=== PATIENT | male | born 1955 | race Caucasian/White ===

== ENCOUNTER 2018-10-24 05:41 | Outpatient (CLI) | payer BC ==
[~2018-10-24] VITALS: Ht 175.3 cm; Wt 93.4 kg
[~2018-10-24 05:41] MED LIST: ACHD5005 PO; CPR500T PO; CRAN1CAP5 PO; HYDR-229 PO; HYDR118S10 PO; LISI10TA PO; NAPR-243 PO; TMSL.4C PO; [UNRECOGNIZED DRUG - CODE] PO
== END 2018-10-24 14:12 ==
LOC: PREOP 05:41
PROVIDERS: ATTEND Surgery
DX: Z01.818 Encounter for other preprocedural examination (principal); R10.12 Left upper quadrant pain

== ENCOUNTER 2018-10-30 13:10 | Day surgery (SDC) | payer BC ==
[2018-10-30] VITALS (7 sets, daily range): BP systolic 178–198; BP diastolic 94–103
[~2018-10-30] VITALS: Ht 175.3 cm; Wt 93.4 kg
[2018-10-30] MEDS ORDERED: LACTATED RINGERS 1,000 ML IV ONE (13:23)
[2018-10-30] MEDS ORDERED: LACTATED RINGERS 1,000 ML IV STA (13:26)
--- NOTE | 2018-10-30 13:59 | Progress Note-Pre Operative ---
Pre-Operative Progress Note H&P Reviewed The H&P was reviewed, patient examined and no changes noted. Date Seen by Provider: Oct 30, 2018 Time Seen by Provider: 13:59 Date H&P Reviewed: Oct 30, 2018 Time H&P Reviewed: 13:59 Pre-Operative Diagnosis: luq abd pain OLMAN RIOS DO Oct 30, 2018 13:59
[2018-10-30] MEDS ORDERED: PROPOFOL INJECTION 50 ML IV ONE (14:31)
[2018-10-30] MEDS ORDERED: MIDAZOLAM 2 MG/2 ML (VERSED) VIAL ONE (14:31)
[2018-10-30] MEDS ORDERED: HURRICAINE EXT TUBE (BENZOCAINE) ONE (15:29)
--- NOTE | 2018-10-30 15:37 | Anesthesia-General Post-Op ---
MAC Patient Condition Mental Status/LOC: Same as Preop Cardiovascular: Satisfactory Nausea/Vomiting: Absent Respiratory: Satisfactory Pain: Controlled Complications: Absent Post Op Complications Complications None Follow Up Care/Instructions Patient Instructions None needed. Anesthesiology Discharge Order Discharge Order Patient was seen after the procedure and he was doing well, no complaints, stable vital signs, no apparent adverse anesthesia problems. QUITA CHOI DO Oct 30, 2018 15:37
--- NOTE | 2018-10-30 17:10 | Progress Note-Post Operative ---
Post-Operative Progess Note Surgeon (s)/Embedded Systems Designer (s) Surgeon OLMAN RIOS DO Embedded Systems Designer: na Pre-Operative Diagnosis luq abd pain Post-Operative Diagnosis small hiatal hernia, gastritis, colon polyps Procedure & Operative Findings Date of Procedure 10/30/18 Procedure Performed/Findings egd c biopsies, colon polyps Anesthesia Type per machine container washer Estimated Blood Loss Estimated blood loss (mL): none Specimens/Packing Specimens Removed antru, body of stomach, ge junction, descending colon plyp and sigmoid polyp OLMAN RIOS DO Oct 30, 2018 17:10
--- NOTE | 2018-10-30 19:46 | OPERATIVE REPORT ---
DATE OF SERVICE: 10/30/2018 PREOPERATIVE DIAGNOSIS: Left upper quadrant abdominal pain. POSTOPERATIVE DIAGNOSES: Small hiatal hernia, gastritis, colon polyps. PROCEDURE: EGD with biopsy, colonoscopy with hot biopsy polypectomy x2. SURGEON: Olman Szymanski DO ANESTHESIA: Per LAUNCH STEWARD. ESTIMATED BLOOD LOSS: None. COMPLICATIONS: None. INDICATIONS: The patient is a 63-year-old male with left upper quadrant abdominal pain. He was discussed risks and benefits of having EGD and colonoscopy performed. He understands risks and benefits and wished to proceed. Consent was signed in the chart. DESCRIPTION OF PROCEDURE: The patient was taken to the endoscopy suite, placed in left lateral recumbent position. Timeout was performed. Scope was inserted into the mouth, down the esophagus, stomach and into the duodenum without difficulty. There were no polyps, masses or ulcerations within the duodenum. Scope was slowly retracted back into the stomach where it was further insufflated. Gastritis appearance was present. Biopsies of the antrum and body were obtained. There is one small polyp present, benign appearance, no masses or ulcerations. Scope was retroflexed noting a small hiatal hernia, no other pathology. Scope was returned to its normal position, slowly withdrawn to the distal esophagus. Biopsy of the GE junction was obtained. Slight erythematous changes, no polyps, masses or ulcerations. Scope was slowly retracted back to completely remove noting no other pathology. Digital rectal exam was performed. There were no palpable polyps, masses or ulcerations, but did have significant hemorrhoidal disease. Scope was inserted in the rectum, advanced all the way to the cecum with minimal difficulty. Prep was adequate. Scope was then slowly retracted back. There were no polyps, masses or ulcerations in the cecum, ascending, transverse colon. Within the descending colon, a small polyp was present to which hot biopsy polypectomy was performed. Scope was continued to be slowly retracted back through the sigmoid colon, which had another small polyp to which hot biopsy polypectomy was performed. No other masses or ulcerations were present or diverticula were present. Scope was continuously retracted back into the rectum, where it was retroflexed noting no other pathology. Scope was returned to its normal position, slowly withdrawn until completely removed. The patient tolerated procedure well without any complications. He was taken to recovery room in stable condition. RECOMMENDATIONS: The patient to consider starting omeprazole 20 mg daily. He will need repeat colonoscopy in 3 to 5 years. If any issues before that will be seen at that time. The patient will follow up in the office in 2 weeks. Job ID: [id number] DocumentID: [id number] Dictated Date: 10/30/2018 17:11:21 Sheet Cutting Operator Date: 10/30/2018 19:45:57 Dictated By: OLMAN SZYMANSKI DO
== END 2018-10-30 16:35 | disposition home or self-care (01) ==
LOC: ENDO 13:10
PROVIDERS: ATTEND Surgery
DX: K63.5 Polyp of colon (principal); K29.50 Unspecified chronic gastritis without bleeding; K31.7 Polyp of stomach and duodenum; K31.89 Other diseases of stomach and duodenum; K44.9 Diaphragmatic hernia without obstruction or gangrene; K64.8 Other hemorrhoids; I21.9 Acute myocardial infarction, unspecified; K76.0 Fatty (change of) liver, not elsewhere classified; N20.0 Calculus of kidney; Z90.89 Acquired absence of other organs; Z79.82 Long term (current) use of aspirin; Z79.899 Other long term (current) drug therapy; Z87.891 Personal history of nicotine dependence; Z83.49 Family history of other endocrine, nutritional and metabolic diseases; Z82.49 Family history of ischemic heart disease and other diseases of the circulatory system; Z83.3 Family history of diabetes mellitus
CPT/HCPCS: 88305

== ENCOUNTER → 2021-05-11 | Outpatient (CLI) | payer OTHER | LOC: CARD 13:00 | PROVIDERS: ATTEND Pediatrics | DX: I51.7 Cardiomegaly (principal); R79.89 Other specified abnormal findings of blood chemistry | CPT/HCPCS: 93306 ==

== ENCOUNTER 2021-05-21 18:20 | Inpatient (IN) | payer OTHER ==
[~2021-05-21] VITALS: Ht 175.2 cm; Wt 78.4 kg
[2021-05-21 18:40] LABS: BASOPHILS # (AUTO) 0.1 10^3/uL (0.0-0.1); BASOPHILS % (AUTO) 1 % (0-10); EOSINOPHILS # (AUTO) 0.2 10^3/uL (0.0-0.3); EOSINOPHILS % (AUTO) 3 % (0-10); HEMATOCRIT 48 % (40-54); HEMOGLOBIN 15.9 g/dL (13.3-17.7); LYMPHOCYTES # (AUTO) 1.9 10^3/uL (1.0-4.0); LYMPHOCYTES % (AUTO) 23 % (12-44); MEAN CORPUSCULAR HEMOGLOBIN 28 pg (25-34); MEAN CORPUSCULAR HGB CONC 34 g/dL (32-36); MEAN CORPUSCULAR VOLUME 84 fL (80-99); MEAN PLATELET VOLUME 10.6 fL (9.0-12.2); MONOCYTES % (AUTO) 12 % (0-12); NEUTROPHILS # (AUTO) 5.1 10^3/uL (1.8-7.8); NEUTROPHILS % (AUTO) 61 % (42-75); PLATELET COUNT 264 10^3/uL (130-400); WHITE BLOOD COUNT 8.3 10^3/uL (4.3-11.0)
[2021-05-21] MEDS ORDERED: fentaNYL INJ 100 MCG/2 ML AMP IVP ONE (18:45)
[2021-05-21] MEDS ORDERED: cloNIDine 0.1 MG (CATAPRES) TAB PO ONE (18:45)
[2021-05-21 18:50] LABS: ALBUMIN 4.2 GM/DL (3.2-4.5); POTASSIUM 3.3 MMOL/L (3.6-5.0)
--- NOTE | 2021-05-21 18:50 | Diagnostic Imaging Report ---
EXAMINATION: Chest 1 view. HISTORY: Chest pain. COMPARISON: None available. FINDINGS: The lungs are clear without edema or pneumonia. No pleural effusion or pneumothorax. Heart size is normal. IMPRESSION: Clear lungs. Dictated by: Dictated on workstation # [id number]
[2021-05-21 18:51] LABS: CALCIUM 9.4 MG/DL (8.5-10.1)
[2021-05-21 18:52] LABS: TOTAL PROTEIN 7.3 GM/DL (6.4-8.2)
[2021-05-21 18:53] LABS: PROTHROMBIN TIME PATIENT 13.5 SEC (12.2-14.7)
[2021-05-21 18:54] LABS: BILIRUBIN,TOTAL 0.3 MG/DL (0.1-1.0)
--- NOTE | 2021-05-21 18:55 | ED Cardiac General ---
History of Present Illness General Chief Complaint: Cardiac/General Problems Stated Complaint: CHEST PAIN Nursing Triage Note: PT TO ROOM BY WHEELCHAIR WITH PT . PT STATES HE HAS CHEST PAIN AND ABDOMINAL PAIN WHERE HERNIA IS. PT STATES CP HAS BEEN GOING ON "ABOUT A YEAR." PT SENT FROM [facility] Source: patient, family Exam Limitations: no limitations History of Present Illness Date Seen by Provider: May 21, 2021 Time Seen by Provider: 18:50 Initial Comments to ER FROM [facility] with reports of chest pain. This has been intermittent for better part of the year. He also reports some epigastric and bilateral upper abdominal pain which he believes is a hernia . patient states that he has noticed a significant decline in his activity tolerance secondary to fatigue and dyspnea He states that even minimal activities exhaust him. He has intermittent chest pain that seems to come and go without reason or pattern. Sometimes it happens at rest but it also happens with activity. He has a strong family history of cardiovascular disease with both brothers and a father suffering UT at the age of 65 and 64. He has chronic nausea that has resulted in weight loss unintentionally over the past 6 months. He was found to have an elevated proBNP at some point during the past month or 2 as part of screening labs as he was trying to get life insurance. This led to his primary care provider Dr. Antolin Mayorga ordering an echocardiogram which was done on 05/11/2021. That showed normal cavity size with mild concentric hypertrophy and ejection fraction of 45 to 50% with hypokinesis of the apical myocardium. He was given 324 mg of aspirin at [facility] prior to arrival here. Timing/Duration: changing over time, intermittent Severity: moderate Location: central Activities at Onset: activity, rest Prior CP/Workup: echocardiography NTG SL ACID BLEACHER: No ASA po ACID BLEACHER: Yes Associated Systoms: Nausea/Vomiting Allergies and Home Medications Allergies Coded Allergies: No Known Drug Allergies (Unverified , 03/08/12) Patient Home Medication List Home Medication List Reviewed: Yes No Active Prescriptions or Reported Meds Review of Systems Review of Systems Constitutional: see HPI EENTM: No Symptoms Reported Respiratory: No Symptoms Reported Cardiovascular: No Symptoms Reported Gastrointestinal: See HPI, Abdominal Pain, Constipated, Nausea Genitourinary: No Symptoms Reported Musculoskeletal: no symptoms reported Skin: no symptoms reported Psychiatric/Neurological: No Symptoms Reported Endocrine: No Symptoms Reported Hematologic/Lymphatic: No Symptoms Reported Past Yzgyggn-Btnclv-Xjtkif Hx Past Medical History Surgeries: Yes (HERNIA/HYDROCELE) Tonsillectomy Respiratory: No Cardiac: No Neurological: No Genitourinary: No Kidney Stones Gastrointestinal: Yes Musculoskeletal: No Endocrine: No HEENT: No Cancer: No Psychosocial: No Integumentary: No Blood Disorders: No Family Medical History No Pertinent Family Hx Physical Exam Vital Signs Vital Signs - First Documented 05/21/21 18:28 Temp 36.3 Pulse 79 Resp 16 B/P (MAP) 223/114 (150) Pulse Ox 97 Capillary Refill : Height, Weight, BMI Height: 5'9.00" Weight: 206lbs. 0.0oz. 93.881670wy; 25.00 BMI Method:Stated General Appearance: No Apparent Distress, WD/WN HEENT: PERRL/EOMI, TMs Normal Neck: Full Range of Motion, Normal Inspection Respiratory: No Accessory Muscle Use, No Respiratory Distress Cardiovascular: Regular Rate, Rhythm, Normal Peripheral Pulses Gastrointestinal: Normal Bowel Sounds, Soft Extremity: Normal Capillary Refill, Normal Inspection Neurologic/Psychiatric: Alert, Oriented x3 Skin: Normal Color, Warm/Dry Progress/Results/Core Measures Results/Orders Lab Results Laboratory Tests Test 05/21/21 18:34 Range/Units White Blood Count 8.3 4.3-11.0 10^3/uL Red Blood Count 5.66 H 4.30-5.52 10^6/uL Hemoglobin 15.9 13.3-17.7 g/dL Hematocrit 48 40-54 % Mean Corpuscular Volume 84 80-99 fL Mean Corpuscular Hemoglobin 28 25-34 pg Mean Corpuscular Hemoglobin Concent 34 32-36 g/dL Red Cell Distribution Width 14.3 10.0-14.5 % Platelet Count 264 130-400 10^3/uL Mean Platelet Volume 10.6 9.0-12.2 fL Immature Granulocyte % (Auto) 0 % Neutrophils (%) (Auto) 61 42-75 % Lymphocytes (%) (Auto) 23 12-44 % Monocytes (%) (Auto) 12 0-12 % Eosinophils (%) (Auto) 3 0-10 % Basophils (%) (Auto) 1 0-10 % Neutrophils # (Auto) 5.1 1.8-7.8 10^3/uL Lymphocytes # (Auto) 1.9 1.0-4.0 10^3/uL Monocytes # (Auto) 1.0 0.0-1.0 10^3/uL Eosinophils # (Auto) 0.2 0.0-0.3 10^3/uL Basophils # (Auto) 0.1 0.0-0.1 10^3/uL Immature Granulocyte # (Auto) 0.0 0.0-0.1 10^3/uL Prothrombin Time 13.5 12.2-14.7 SEC INR Comment 1.0 0.8-1.4 Activated Partial Thromboplast Time 32 24-35 SEC Sodium Level 141 135-145 MMOL/L Potassium Level 3.3 L 3.6-5.0 MMOL/L Chloride Level 105 98-107 MMOL/L Carbon Dioxide Level 20 L 21-32 MMOL/L Anion Gap 16 H 5-14 MMOL/L Blood Urea Nitrogen 15 7-18 MG/DL Creatinine 0.77 0.60-1.30 MG/DL Estimat Glomerular Filtration Rate 100 BUN/Creatinine Ratio 19 Glucose Level 136 H 70-105 MG/DL Calcium Level 9.4 8.5-10.1 MG/DL Corrected Calcium 9.2 8.5-10.1 MG/DL Magnesium Level 2.1 1.6-2.4 MG/DL Total Bilirubin 0.3 0.1-1.0 MG/DL Aspartate Amino Transf (AST/SGOT) 30 5-34 U/L Alanine Aminotransferase (ALT/SGPT) 49 0-55 U/L Alkaline Phosphatase 87 40-136 U/L Myoglobin 63.7 10.0-92.0 NG/ML Troponin I 0.327 *H <0.028 NG/ML B-Type Natriuretic Peptide 168.9 H <100.0 PG/ML Total Protein 7.3 6.4-8.2 GM/DL Albumin 4.2 3.2-4.5 GM/DL Lipase 34 8-78 U/L My Orders Orders - AMNA NEVAREZ DEPUTY GENERAL COUNSEL Cbc With Automated Diff (05/21/21 18:24) Magnesium (05/21/21 18:24) Chest 1 View, Ap/Pa Only (05/21/21 18:24) Ekg Tracing (05/21/21 18:24) Comprehensive Metabolic Panel (05/21/21 18:24) Myoglobin Serum (05/21/21 18:24) Protime With Inr (05/21/21 18:24) Partial Thromboplastin Time (05/21/21 18:24) O2 (05/21/21 18:24) Monitor-Rhythm Ecg Trace Only (05/21/21 18:24) Lipid Panel (05/22/21 06:00) Ed Iv/Invasive Line Start (05/21/21 18:24) Bnp [place] (05/21/21 18:24) Troponin I [place] (05/21/21 18:24) Ct Kristan Chest/Noang Abd-Pelv W (05/21/21 18:44) Lipase (05/21/21 18:44) Fentanyl Inj (Sublimaze Injection) (05/21/21 18:45) Clonidine Tablet (Catapres Tablet) (05/21/21 18:45) Iohexol Injection (Omnipaque 350 Mg/Ml 1 (05/21/21 19:00) Received Contrast (Hold Metformin- Contr (05/21/21 19:00) Ns (Ivpb) (Sodium Chloride 0.9% Ivpb Bag (05/21/21 19:00) Nitroglycerin 0.4 Mg Btl 25's (Nitrostat (05/21/21 19:45) Medications Given in ED Current Medications Medications Dose Ordered Sig/Zoila Route Start Time Stop Time Status Last Admin Dose Admin Clonidine HCl 0.1 mg ONCE ONCE PO 05/21/21 18:45 05/21/21 18:47 DC 05/21/21 19:02 0.1 MG Fentanyl Citrate 50 mcg ONCE ONCE IVP 05/21/21 18:45 05/21/21 18:46 DC 05/21/21 19:02 50 MCG Iohexol 100 ml ONCE ONCE IV 05/21/21 19:00 05/21/21 19:01 DC 05/21/21 19:23 75 ML Nitroglycerin 1 TAB Q 5 MIN X 3 NEEDED PRN SL 05/21/21 19:45 05/21/21 19:52 0.4 MG Sodium Chloride 100 ml ONCE ONCE IV 05/21/21 19:00 05/21/21 19:01 DC 05/21/21 19:23 80 ML Vital Signs/I&O 05/21/21 18:28 Temp 36.3 Pulse 79 Resp 16 B/P (MAP) 223/114 (150) Pulse Ox 97 Blood Pressure Mean: 150 Departure Communication (Admissions) 1999-Spoke with Dr. Schultz about the CT findings of kiah-infarct apical aneurysm, patients symptoms and history. We will start him on aspirin, Lovenox, beta-norberto and atorvastatin 40 [address] daily[address] with Dr. Martniez, will admit here. He is primarily concerned about a "hernia" of the lateral abdominal wall bilaterally Impression Primary Impression: NSTEMI (non-ST elevated myocardial infarction) Disposition: ADMITTED INPATIENT Condition: Stable Admissions Decision to Admit Reason: Admit from ER (General) Decision to Admit/Date: May 21, 2021 Time/Decision to Admit Time: 20:01 Departure-Patient Inst. Referrals: DONELL OCHOA DO (PCP/Family) Primary Care Physician Scripts No Active Prescriptions or Reported Meds AMNA NEVAREZ APRN May 21, 2021 18:55
[2021-05-21 18:56] LABS: CREATININE SERUM 0.77 MG/DL (0.60-1.30)
[2021-05-21 18:58] LABS: MAGNESIUM 2.1 MG/DL (1.6-2.4)
[2021-05-21] MEDS ORDERED: NS 100 ML (IVPB) BAG IV ONE (19:00)
[2021-05-21] MEDS ORDERED: HOLD METFORMIN - RECEIVED CONTRAST 20 ML VIAL IV SCH (19:00)
[2021-05-21] MEDS ORDERED: IOHEXOL 350 MG/ML 100 ML (OMNIPAQUE 350) VIAL IV ONE (19:00)
--- NOTE | 2021-05-21 19:40 | Diagnostic Imaging Report ---
EXAMINATION: CT angiography chest with and without, CT abdomen and pelvis with and without. TECHNIQUE: Noncontrast enhanced helical images were obtained through the chest, abdomen and pelvis. Contrast enhanced thin section helical images were obtained through the chest, abdomen and pelvis with intravenous contrast timed for the optimal opacification of the arterial structures per departmental CTA protocol. Post-processing, retro reconstructions and interpretation of angiographic images of the vessels was performed. 3D MIP reconstructions were performed and reviewed. All CT scans use one or more of the following dose optimizing techniques: automated exposure control, MA and/or KvP adjustment based on patient size and exam type or iterative reconstruction. HISTORY: Chest pain, abdominal pain. COMPARISON: None available. FINDINGS: There is no pulmonary embolism. There is no edema or pneumonia. No pleural effusion. No pneumothorax. No suspicious nodules. There is no axillary or supraclavicular lymphadenopathy. There is no mediastinal lymphadenopathy. There is subendocardial hypoenhancement in the left anterior descending artery territory with thinning of the apex consistent with a kiah-infarct in the aneurysm. There are moderate coronary artery calcifications. No pericardial effusion. Aorta is normal in caliber. The liver is normal without focal lesion. There is no biliary ductal dilation. Gallbladder is normal. Pancreas is normal. Spleen is normal. Adrenal glands are normal. The kidneys are normal. There is no hydronephrosis. Urinary bladder is normal. Bowel is normal in caliber without obstruction or inflammation. The appendix is normal. No free fluid or air. No abdominal or pelvic lymphadenopathy. Aorta is normal in caliber without aneurysm. There are no suspicious osseus lesions. IMPRESSION: 1. No pulmonary embolism. 2. 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 3. No acute abnormality in the abdomen or pelvis. Dictated by: Dictated on workstation # [id number]
[2021-05-21] MEDS ORDERED: NITROGLYCERIN 0.4 MG SL TABS BTL 25'S SL PRN (19:45)
[2021-05-21] MEDS ORDERED: ENOXAPARIN 80 MG/0.8 ML (LOVENOX) SYR SC ONE (20:00)
[2021-05-21] MEDS ORDERED: meTOproloL SUCCINATE 50 MG (TOPROL XL) TAB PO SCH (20:00)
[2021-05-21] MEDS ORDERED: BISACODYL 10 MG SUPP (DULCOLAX) PR PRN (21:00)
[2021-05-21] MEDS ORDERED: ANTACID SUSP 30 ML UDC (MYLANTA) PO PRN (21:00)
[2021-05-21] MEDS ORDERED: ALPRAZolam 0.25 MG (XANAX) TAB PO PRN (21:00)
[2021-05-21] MEDS ORDERED: ONDANSETRON 4 MG (ZOFRAN) ORAL DISSOLVE TAB PO PRN (21:00)
[2021-05-21] MEDS ORDERED: morphine INJ 4 MG/ML 1 ML (VIAL/SYRINGE) IV PRN (21:00)
[2021-05-21] MEDS ORDERED: MILK OF MAGNESIA 400 MG/5 ML 30 ML UDC PO PRN (21:00)
[2021-05-21] MEDS ORDERED: CALCIUM CARBONATE 500 MG (TUMS) TAB.CHEW PO PRN (21:00)
[2021-05-21] MEDS ORDERED: diphenhydrAMINE 25 MG TAB (BENADRYL) PO PRN (21:00)
[2021-05-21] MEDS ORDERED: MELATONIN 3 MG TABLET PO PRN (21:00)
[2021-05-21] MEDS ORDERED: diphenhydrAMINE 50 MG/ML INJ (BENADRYL) IVP PRN (21:00)
[2021-05-21] MEDS ORDERED: ACETAMINOPHEN 325 MG TABLET PO PRN (21:00)
[2021-05-21] MEDS ORDERED: LACTULOSE SYRUP 10GM/15ML (ENULOSE) 30ML UDC PO PRN (21:00)
[2021-05-21] MEDS ORDERED: ONDANSETRON 4 MG/2 ML (SDV) Z0FRAN IV PRN (21:00)
[2021-05-21] MEDS ORDERED: polyethylene glycoL POWDER 17 GM (MIRALAX) PACK PO PRN (21:00)
[2021-05-21 21:37] LABS: BILIRUBIN,URINE NEGATIVE (NEGATIVE); CLARITY,URINE CLEAR; COLOR,URINE YELLOW; GLUCOSE, URINE (UA) NEGATIVE (NEGATIVE); KETONES,URINE NEGATIVE (NEGATIVE); LEUKOCYTE ESTERASE ,URINE NEGATIVE (NEGATIVE); NITRITE,URINE POSITIVE (NEGATIVE); PH,URINE 6.5 (5-9); PROTEIN,URINE NEGATIVE (NEGATIVE)
[2021-05-21] MEDS: DOCUSATE SODIUM 100 MG (COLACE) CAP PO SCH (21:51)
[2021-05-21] MEDS: SENNOSIDES 8.6 MG (SENOKOT) TAB PO SCH (21:51)
[2021-05-21] MEDS: ENOXAPARIN 80 MG/0.8 ML (LOVENOX) SYR SC SCH (21:51)
[2021-05-21] MEDS: meTOprolol TARTRATE 25 MG (LOPRESSOR) TABLET PO SCH (21:51)
[2021-05-21 21:52] LABS: BACTERIA,URINE FEW /HPF; SQUAMOUS EPITHELIAL CELL,UR RARE /HPF; WBC,URINE RARE /HPF
[2021-05-21] MEDS ORDERED: POTASSIUM CL 10MEQ/50ML IVPB 50 ML IV ONE (22:30)
[2021-05-21] MEDS ORDERED: NS (IVPB) 250 ML ONE (22:43)
[2021-05-21] MEDS: PANTOPRAZOLE 40 MG (PROTONIX) VIAL IV SCH (22:55)
[2021-05-22 06:14] LABS: BASOPHILS # (AUTO) 0.1 10^3/uL (0.0-0.1); BASOPHILS % (AUTO) 1 % (0-10); EOSINOPHILS # (AUTO) 0.3 10^3/uL (0.0-0.3); EOSINOPHILS % (AUTO) 3 % (0-10); HEMATOCRIT 44 % (40-54); HEMOGLOBIN 14.4 g/dL (13.3-17.7); LYMPHOCYTES # (AUTO) 2.4 10^3/uL (1.0-4.0); LYMPHOCYTES % (AUTO) 30 % (12-44); MEAN CORPUSCULAR HEMOGLOBIN 28 pg (25-34); MEAN CORPUSCULAR HGB CONC 33 g/dL (32-36); MEAN CORPUSCULAR VOLUME 85 fL (80-99); MEAN PLATELET VOLUME 10.8 fL (9.0-12.2); MONOCYTES # (AUTO) 0.8 10^3/uL (0.0-1.0); MONOCYTES % (AUTO) 10 % (0-12); NEUTROPHILS # (AUTO) 4.6 10^3/uL (1.8-7.8); NEUTROPHILS % (AUTO) 57 % (42-75); PLATELET COUNT 233 10^3/uL (130-400); WHITE BLOOD COUNT 8.2 10^3/uL (4.3-11.0)
--- NOTE | 2021-05-22 06:21 | History & Physical-Hospitalist ---
History of Present Illness HPI/Chief Complaint Chief complaint: Chest pain History present illness: This is a 65-year-old white male who presented to the ER with chest pain. Slightly elevated troponin noted. Cardiology consulted. Aspirin and Lovenox and beta-norberto and statin therapy initiated per protocol. Patient reported taking great pride in the fact he was not on any prescription medication at 65 years old and takes his herbals. Cardiac cath will be p erformed by Dr. Schultz. Source: patient Exam Limitations: no limitations Date Seen 05/22/21 Time Seen by a Provider: 11:00 Attending Physician Jacquelyn Martinez DO PCP Jean Saavedra DO Referring Physician Date of Admission May 21, 2021 at 20:03 Home Medications & Allergies Home Medications Reviewed patient Home Medication Reconciliation performed by pharmacy medication reconciliations dairy lab technician and/or nursing. Patients Allergies have been reviewed. Allergies Allergies Coded Allergies No Known Drug Allergies (Unverified03/08/12) Past Zrgunue-Cmytna-Xhyedq Hx Patient Social History Marrital Status: single Employed/Student: retired Tobacco Use?: No Smoking Status: Never a Smoker Substance use?: No Alcohol Use?: No Pt feels they are or have been: No Current Status Communicates: Verbally Primary Language: Irish Preferred Spoken Language: Irish Past Medical History Surgeries: Tonsillectomy Kidney Stones Blood Disorders: No Family Medical History No Pertinent Family Hx Review of Systems Constitutional: see HPI, malaise, weakness EENTM: no symptoms reported Respiratory: no symptoms reported Cardiovascular: chest pain Gastrointestinal: no symptoms reported Genitourinary: no symptoms reported Musculoskeletal: no symptoms reported Skin: no symptoms reported Psychiatric/Neurological: No Symptoms Reported All Other Systems Reviewed Negative Unless Noted: Yes Physical Exam Physical Exam Vital Signs Vital Signs - First Documented 05/21/21 05/21/21 05/22/21 18:28 22:25 16:42 Temp 36.3 Pulse 79 Resp 16 B/P (MAP) 223/114 (150) Pulse Ox 97 O2 Flow Rate 2.00 FiO2 21 Capillary Refill : Less Than 3 Seconds Height, Weight, BMI Height: 5'9.00" Weight: 206lbs. 0.0oz. 93.584037dr; 25.00 BMI Method:Stated General Appearance: No Apparent Distress Eyes: Right Eye Normal Inspection, Right Eye PERRL HEENT: PERRL/EOMI, Normal ENT Inspection, Pharynx Normal, Moist Mucous Membranes Neck: Full Range of Motion, Normal Inspection, Non Tender Respiratory: Chest Non Tender, Lungs Clear, Normal Breath Sounds, No Accessory Muscle Use, No Respiratory Distress Cardiovascular: Regular Rate, Rhythm, No Edema, No Gallop, No JVD, No Murmur, Normal Peripheral Pulses Gastrointestinal: Normal Bowel Sounds, No Organomegaly, No Pulsatile Mass, Non Tender, Soft Back: Normal Inspection, No CVA Tenderness, No Vertebral Tenderness Extremity: Normal Capillary Refill, Normal Inspection, Normal Range of Motion, Non Tender, No Calf Tenderness, No Pedal Edema Neurologic/Psychiatric: Alert, Oriented x3, No Motor/Sensory Deficits, Normal Mood/Affect Skin: Normal Color, Warm/Dry Lymphatic: No Adenopathy Results Results/Procedures Labs Laboratory Tests 05/21/21 18:34 05/22/21 06:03 Patient resulted labs reviewed. Assessment/Plan Admission Diagnosis Assessment: Chest pain Non-ST elevation TN Plan: Cardiac cath Admission Status: Inpatient Order (span 2 midnights) Reason for Inpatient Admission: Non-STEMI Diagnosis/Problems Diagnosis/Problems (1) Non-ST elevation myocardial infarction (NSTEMI), initial care episode Clinical Quality Measures AMI/AHF: ASA po Prior to arrival: Yes JACQUELYN MARTINEZ DO May 22, 2021 06:21
[2021-05-22 06:35] LABS: POTASSIUM 3.4 MMOL/L (3.6-5.0)
[2021-05-22 06:36] LABS: ALBUMIN 3.6 GM/DL (3.2-4.5)
[2021-05-22 06:37] LABS: CALCIUM 8.9 MG/DL (8.5-10.1)
[2021-05-22 06:38] LABS: TOTAL PROTEIN 6.2 GM/DL (6.4-8.2)
[2021-05-22 06:40] LABS: BILIRUBIN,TOTAL 0.3 MG/DL (0.1-1.0)
[2021-05-22 06:42] LABS: CREATININE SERUM 0.72 MG/DL (0.60-1.30)
[2021-05-22] MEDS ORDERED: ASPIRIN E.C. 81 MG (ECOTRIN) TAB PO SCH (09:00)
[2021-05-22] MEDS: ENOXAPARIN 80 MG/0.8 ML (LOVENOX) SYR SC SCH (09:24)
[2021-05-22] MEDS: PANTOPRAZOLE 40 MG (PROTONIX) VIAL IV SCH (09:24)
[2021-05-22] MEDS: SENNOSIDES 8.6 MG (SENOKOT) TAB PO SCH (09:24)
[2021-05-22] MEDS: DOCUSATE SODIUM 100 MG (COLACE) CAP PO SCH (09:24)
[2021-05-22] MEDS: meTOprolol TARTRATE 25 MG (LOPRESSOR) TABLET PO SCH ×2 (09:32→10:09)
--- NOTE | 2021-05-22 10:26 | Consultation-Cardiology ---
HPI-Cardiology Cardiology Consultation: Date of Consultation 05/22/21 Date of Admission 05/21/2021 Attending Physician Jacquelyn Martinez DO Admitting Physician Jean Saavedra DO Consulting Physician RITA WU JR, MD HPI: Time Seen by a Provider: 10:21 Chief Complaint: Reason for consultation: Non-ST elevation myocardial infarction and cardiomyopathy. I had the pleasure of seeing Jeff in the intensive care unit at [facility] in [place], [place] this morning. He has no previously known history of coronary artery disease. For the past year he has been having issues with abdominal hernias. He has a ventral hernia as well as a hernia on the right side of his abdomen. These have been causing problems with abdominal pain and constipation. He had seen his primary provider and was taking some [id number]-[id number] medication for constipation. However, he has also had progressive shortness of breath and chest discomfort over the past year. He also spoke to his primary provider about these symptoms 2 weeks ago. An echocardiogram was ordered which showed mild left ventricular systolic dysfunction with an apical wall motion abnormality. He has not yet received the report on this. Then yesterday he went to his primary provider again due to increasing chest discomfort and dyspnea. He describes the chest discomfort as a pressure in his chest. This was 7/10 at its worst. His primary provider then sent him to the emergency room last evening for further evaluation. He was found to have a marginally elevated troponin level and was admitted to the hospital for further evaluation. Overnight, he has continued to have intermittent chest discomfort although somewhat improved. His troponin has gradually gone up overnight although minimally elevated. He denies paroxysmal nocturnal dyspnea, orthopnea, palpitations, lightheadedness, syncope, or lower extremity edema. Because of the non-ST elevation myocardial infarction, a cardiology consultation was requested. Certain portions of this document may have been dictated utilizing voice recognition technology. Inherent to this technology, typographical and grammatical errors may exist. As much as I am diligent to identify and correct these mistakes, some errors may remain in the document. Review of Systems-Cardiology Review of Systems Other comments Review of 10 organ systems is as per the history of present illness, otherwise negative. [id number]-[id number]-Urodza Hx Patient Social History Marrital Status: Smoking Status: Never a Smoker Have you traveled recently?: No Alcohol Use?: No Pt feels they are or have been: No Past Medical History PMH As described under Assessment. Family Medical History Family Medical History: His brothers had heart problems. Allergies and Home Medications Allergies Coded Allergies: No Known Drug Allergies (Unverified , 03/08/12) Patient Home Medication List Home Medication List Reviewed: Yes No Active Prescriptions or Reported Meds Exam Vital Signs Vital Signs Date Time Temp Pulse Resp B/P (MAP) Pulse Ox O2 Delivery O2 Flow Rate FiO2 05/22/21 10:00 61 11 158/89 97 Room Air 05/22/21 07:43 36.3 05/21/21 22:25 21 Physical Exam General: Alert. No acute distress. Well nourished and appears stated age. Eye: Extraocular movements are intact. Conjunctivae are clear. There are no xanthelasma. HENT: Normocephalic. Atraumatic. Carotid pulsations 2/2 without bruits. Neck: Jugular venous pressure does not appear elevated. No thyromegaly appreciated. Respiratory: Lungs are clear to auscultation. Respirations are non-labored. Breath sounds are equal. Symmetrical chest wall expansion. Cardiovascular: Normal rate. Regular rhythm. No murmur. No gallop. Point of maximal impulse is not appear displaced. Good pulses equal in all extremities. No edema. Gastrointestinal: Soft. Normal bowel sounds. Skin: Skin turgor is normal. There is no pallor. Musculoskeletal: No kyphosis or scoliosis appreciated. Neurologic: Alert and oriented to person, place, time. Cranial nerves 3-12 appear grossly intact. The patient has good motor tone strength in the upper and lower extremities bilaterally. Psychiatric: Cooperative. Appropriate mood & affect. Labs Laboratory Tests Test 05/21/21 18:34 05/21/21 21:30 05/22/21 01:08 05/22/21 06:03 Range/Units White Blood Count 8.3 8.2 4.3-11.0 10^3/uL Red Blood Count 5.66 H 5.12 4.30-5.52 10^6/uL Hemoglobin 15.9 14.4 13.3-17.7 g/dL Hematocrit 48 44 40-54 % Mean Corpuscular Volume 84 85 80-99 fL Mean Corpuscular Hemoglobin 28 28 25-34 pg Mean Corpuscular Hemoglobin Concent 34 33 32-36 g/dL Red Cell Distribution Width 14.3 14.4 10.0-14.5 % Platelet Count 264 233 130-400 10^3/uL Mean Platelet Volume 10.6 10.8 9.0-12.2 fL Immature Granulocyte % (Auto) 0 0 % Neutrophils (%) (Auto) 61 57 42-75 % Lymphocytes (%) (Auto) 23 30 12-44 % Monocytes (%) (Auto) 12 10 0-12 % Eosinophils (%) (Auto) 3 3 0-10 % Basophils (%) (Auto) 1 1 0-10 % Neutrophils # (Auto) 5.1 4.6 1.8-7.8 10^3/uL Lymphocytes # (Auto) 1.9 2.4 1.0-4.0 10^3/uL Monocytes # (Auto) 1.0 0.8 0.0-1.0 10^3/uL Eosinophils # (Auto) 0.2 0.3 0.0-0.3 10^3/uL Basophils # (Auto) 0.1 0.1 0.0-0.1 10^3/uL Immature Granulocyte # (Auto) 0.0 0.0 0.0-0.1 10^3/uL Prothrombin Time 13.5 12.2-14.7 SEC INR Comment 1.0 0.8-1.4 Activated Partial Thromboplast Time 32 24-35 SEC Sodium Level 141 139 135-145 MMOL/L Potassium Level 3.3 L 3.4 L 3.6-5.0 MMOL/L Chloride Level 105 107 98-107 MMOL/L Carbon Dioxide Level 20 L 21 21-32 MMOL/L Anion Gap 16 H 11 5-14 MMOL/L Blood Urea Nitrogen 15 12 7-18 MG/DL Creatinine 0.77 0.72 0.60-1.30 MG/DL Estimat Glomerular Filtration Rate 100 102 BUN/Creatinine Ratio 19 17 Glucose Level 136 H 114 H 70-105 MG/DL Calcium Level 9.4 8.9 8.5-10.1 MG/DL Corrected Calcium 9.2 9.2 8.5-10.1 MG/DL Magnesium Level 2.1 1.6-2.4 MG/DL Total Bilirubin 0.3 0.3 0.1-1.0 MG/DL Aspartate Amino Transf (AST/SGOT) 30 29 5-34 U/L Alanine Aminotransferase (ALT/SGPT) 49 45 0-55 U/L Alkaline Phosphatase 87 70 40-136 U/L Myoglobin 63.7 10.0-92.0 NG/ML Troponin I 0.327 *H 0.337 *H 0.401 *H <0.028 NG/ML B-Type Natriuretic Peptide 168.9 H <100.0 PG/ML Total Protein 7.3 6.2 L 6.4-8.2 GM/DL Albumin 4.2 3.6 3.2-4.5 GM/DL Lipase 34 8-78 U/L Urine Color YELLOW Urine Clarity CLEAR Urine pH 6.5 5-9 Urine Specific [place] 1.010 L 1.016-1.022 Urine Protein NEGATIVE NEGATIVE Urine Glucose (UA) NEGATIVE NEGATIVE Urine Ketones NEGATIVE NEGATIVE Urine Nitrite POSITIVE H NEGATIVE Urine Bilirubin NEGATIVE NEGATIVE Urine Urobilinogen 0.2 < = 1.0 MG/DL Urine Leukocyte Esterase NEGATIVE NEGATIVE Urine RBC (Auto) NEGATIVE NEGATIVE Urine RBC NONE /HPF Urine WBC RARE /HPF Urine Squamous Epithelial Cells RARE /HPF Urine Crystals NONE /LPF Urine Bacteria FEW H /HPF Urine Casts NONE /LPF Urine Mucus NEGATIVE /LPF Urine Culture Indicated YES Triglycerides Level 160 H <150 MG/DL Cholesterol Level 127 < 200 MG/DL LDL Cholesterol Direct 94 1-129 MG/DL VLDL Cholesterol 32 5-40 MG/DL HDL Cholesterol 22 L 40-60 MG/DL ECG Impression ECG Comment Electrocardiogram from the emergency room shows sinus rhythm and possible old anterior myocardial infarction with minimal anterior ST elevation. Diagnosis/Problems Diagnosis/Problems (1) Non-ST elevation myocardial infarction (NSTEMI), initial care episode Assessment & Plan: He appears to be suffering a non-ST elevation myocardial infarction. Based upon his recent echocardiogram, it appears as though he may have had an old anterior myocardial infarction. His electrocardiogram also shows anterior Q waves. However, his troponin is on the rise and he is still having chest discomfort. He has been placed on aspirin, enoxaparin, beta- norberto and statin medication. I will start him on nitroglycerin paste. I recommend further evaluation with a cardiac catheterization. Benefits and risks of the procedure have been explained to the patient and his and both are in agreement to proceed. (2) Cardiomyopathy Assessment & Plan: His recent echocardiogram ordered by his primary provider prior to this admission showed mild left ventricular systolic dysfunction with an ejection fraction of 45-50%. He has been started on metoprolol succinate. I will add low-dose of lisinopril. There is no evidence of heart failure on his chest x-ray or chest CT. (3) Primary hypertension Assessment & Plan: He does not have a history of hypertension but his blood pressures have been elevated here in the hospital. He has been started on beta- norberto. I will also be adding lisinopril due to the cardiomyopathy. RITA WU JR, MD May 22, 2021 10:26
[2021-05-22] MEDS ORDERED: CATHETER FLUSH 10 ML SYR IV PRN (10:30)
[2021-05-22] MEDS ORDERED: NS IV 1000 ML 1,000 ML IV ONE (10:30)
[2021-05-22] MEDS ORDERED: lisINopril 5 MG (PRINIVIL) TABLET PO ONE (10:30)
[2021-05-22] MEDS: NITROGLYCERIN 2% OINT 1 GM UNIT DOSE PACKET TOP SCH ×2 (10:37→13:29)
--- NOTE | 2021-05-22 11:02 | Pre-Op Note & Conscious Sedat ---
Pre-Operative Progress Note H&P Reviewed The H&P was reviewed, patient examined and no changes noted. Date H&P Reviewed: May 22, 2021 Time H&P Reviewed: 11:02 Pre-Op Diagnosis: NSTEMI and cardiomyopathy Conscious Sedation Pre-Proced ASA Score 3 For ASA 3 and 4: Consider anesthesia and medical clearance. Also, for patients with a history of failed moderate sedation consider anesthesia. Airway Lungs Heart ASA score ASA 1: a normal healthy patient ASA 2: a patient with a mild systemic disease (mid diabetes, controlled hypertension, obesity ASA 3: a patient with a severe systemic disease that limits activity (angina, COPD, prior Myocardial infarction) ASA 4: a patient with an incapacitating disease that is a constant threat to life (CHF, renal failure) ASA 5: a moribund patient not expected to survive 24 hrs. (ruptured aneurysm) ASA 6: a declared brain- patient whose organs are being harvested. For emergent operations, add the letter E after the classification Mallampati Classification Grade 2 Sedation Plan Analgesia, Amnesia, Plan communicated to team members, Discussed options with patient/fam, Discussed risks with patient/fam The patient is an appropriate candidate to undergo the planned procedure, sedation, and anesthesia. The patient immediately re-assessed prior to indication. RITA WU JR, MD May 22, 2021 11:02
[2021-05-22] MEDS ORDERED: LIDOCAINE 1% INJ 20 ML VIAL ONE (11:11)
[2021-05-22] MEDS ORDERED: HEParin (CATH LAB) 2,000 ML IV ONE (11:11)
[2021-05-22] MEDS ORDERED: fentaNYL INJ 100 MCG/2 ML AMP ONE (11:38)
[2021-05-22] MEDS ORDERED: VERAPAMIL 5 MG/2 ML (CALAN) VIAL IV ONE (11:38)
[2021-05-22] MEDS ORDERED: NITRO DRIP 25000 MCG/D5W 250 ML IV ONE (11:38)
[2021-05-22] MEDS ORDERED: HEParin 1000 UNIT/ML (10ML VIAL) FOR BOLUS ONE (11:38)
[2021-05-22] MEDS ORDERED: MIDAZOLAM 5 MG/5 ML (VERSED) VIAL ONE (11:38)
[2021-05-22] MEDS ORDERED: NS IV 1000 ML 1,000 ML ONE (12:10)
[2021-05-22] MEDS ORDERED: NS IV 1000 ML 1,000 ML IV SCH (12:45)
[2021-05-22] MEDS ORDERED: PATIENT MAY USE OWN MEDS, ALL PO SCH (12:45)
--- NOTE | 2021-05-22 13:41 | Cardiac Cath Report ---
CARDIAC CATHETERIZATION DATE OF PROCEDURE: 05/22/2021 INDICATION: Non-ST elevation myocardial infarction and cardiomyopathy. HISTORY: The patient is a 65 year old male with no previously known history of coronary artery disease. He has had a long history of chest discomfort. He recently saw his primary provider who did an outpatient echocardiogram that s howed anterior hypokinesis with mild cardiomyopathy with an ejection fraction of 45-50%. He was not yet aware of the results. Then yesterday he went to his primary care provider's office again due to ongoing chest pain and they sent him to the emergency room. He was found to have a borderline elevated troponin level. However, overnight his troponin levels have continued to rise and he has had ongoing chest discomfort. Therefore, he is now referred for further evaluation with a cardiac catheterization. PROCEDURES PERFORMED: 1. Diagnostic [place] coronary angiography. PROCEDURE DESCRIPTION: After informed consent and in the fasting state, left heart catheterization was performed through the right radial artery utilizing a 6 Marshallese system by percutaneous approach. Standard 5 Marshallese Farhana catheters were utilized for the diagnostic portion of the procedure. All catheters were exchanged over a guidewire. Following the procedure, a vascular band was applied to the radial artery access site and the sheath was removed with good hemostasis. RESULTS: HEMODYNAMICS: The aortic pressure was 94/51 mmHg. The aortic valve was not crossed. CORONARY ANGIOGRAPHY: The coronary arteries were mild to moderately calcified. Left main coronary artery: There was a 30% stenosis in the mid segment. Left anterior descending coronary artery: There were multiple 90% stenoses in the proximal and mid segments with MARLON-1 flow. There was a moderate sized first diagonal branch which also contained a 90% stenosis proximally with MARLON-1 flow. Left circumflex coronary artery: There was an 80% stenosis in the midportion of the vessel. There were 2 moderate-sized obtuse marginal branches both of which contained 90% stenoses with MARLON-2 flow. Right coronary artery: Dominant and there was a 70% stenosis in the midsegment followed by an 80% stenosis distally that appeared to extend down into a large posterior descending artery. The mid to distal portion of the posterior descending artery also contained moderate to severe diffuse disease with MARLON-1 flow. There was a moderate size posterolateral branch which was free of significant disease and had MARLON-2 flow. IMPRESSION: 1. Borderline low systemic arterial pressure. 2. Severe calcific three-vessel coronary artery disease in a right dominant system as outlined above. 3. The patient is known to have mild left ventricular systolic dysfunction with an estimated ejection fraction of 45-50% with apical hypokinesis without significant valvular disease by echocardiogram obtained on 05/11/2021. New 4. The patient will need to be evaluated by a cardiothoracic surgeon for consideration of coronary artery bypass surgery. At the patient and family's request, they would like to be evaluated at [facility] in [place], [place]. Certain portions of this document may have been dictated utilizing voice recognition technology. Inherent to this technology, typographical and grammatical errors may exist. As much as I am diligent to identify and correct these mistakes, some errors may remain in the document. RITA WU JR, MD May 22, 2021 13:41
[2021-05-22 16:42] VITALS: BP 128/75
[2021-05-23] MEDS ORDERED: lisINopril 5 MG (PRINIVIL) TABLET PO SCH (09:00)
== END 2021-05-22 17:02 | disposition short-term general hospital (02) | DRG 281 ==
LOC: EDUNIT# 18:20 → ER 18:22 → ICU 20:03
PROVIDERS: ADMIT Internal Medicine; ATTEND Internal Medicine
PROC: 4A023N7 Measurement of Cardiac Sampling and Pressure, Left Heart, Percutaneous Approach (ICD-10-PCS; principal; 2021-05-22)
PROC: B2111ZZ Fluoroscopy of Multiple Coronary Arteries using Low Osmolar Contrast (ICD-10-PCS; 2021-05-22)
DX: I21.4 Non-ST elevation (NSTEMI) myocardial infarction (principal); I42.9 Cardiomyopathy, unspecified; I10 Essential (primary) hypertension
CPT/HCPCS: 36415; 71045; 71275; 74177; 80053; 80061; 81000; 83690; 83735; 83874; 83880; 84484; 85025; 85610; 85730; 87088; 93005; 93041; 93454

== ENCOUNTER → 2021-10-29 | Outpatient (CLI) | payer MEDICARE, MEDICAID ==
--- NOTE | 2021-10-29 18:40 | Diagnostic Imaging Report ---
CLINICAL INDICATION: Patient with pain in the thoracic spine. EXAM: X-rays of the thoracic spine, 4 views. COMPARISON: CT angiogram of the chest, abdomen and pelvis dated 05/21/2021. FINDINGS: Of note, the upper thoracic spine is partially viewed on lateral view due to overlapping anatomical structures. There is no acute thoracic spine fracture or dislocation involving the thoracic or lumbar spine. There are hypertrophic spurs involving the thoracic and lumbar spine. Sacroiliac joints show no significant abnormality. 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 Dictated by: Dictated on workstation # [id number]
== END ==
LOC: RAD 18:11
PROVIDERS: ATTEND Surgery
DX: M47.814 Spondylosis without myelopathy or radiculopathy, thoracic region (principal); M47.816 Spondylosis without myelopathy or radiculopathy, lumbar region
CPT/HCPCS: 72080

== ENCOUNTER 2022-12-13 09:15 | Day surgery (SDC) | payer MEDICARE, MEDICAID ==
[~2022-12-13] VITALS: Ht 175.3 cm; Wt 79.4 kg
[~2022-12-13 09:15] MED LIST changes: +ASPI-1238 PO; +ATOR40TA70 PO; +CARV12.53 PO; +CLOP-31 PO; +DAPA10TA PO; +FURO-125 PO; +GABA-486 PO; +ISOS20TA13 PO; +LINA290C PO; +LOSA-414 PO; +POTA10CA84 PO; +RANO500T6 PO
[2022-12-13] MEDS ORDERED: LACTATED RINGERS 1,000 ML 1,000 ML IV STA (09:46)
[2022-12-13 09:54] VITALS: BP 160/82
[2022-12-13 10:55] VITALS: BP 113/55
--- NOTE | 2022-12-13 10:55 | Anesthesia-General Post-Op ---
MAC Patient Condition Mental Status/LOC: Same as Preop Cardiovascular: Satisfactory Nausea/Vomiting: Absent Respiratory: Satisfactory Pain: Controlled Complications: Absent Post Op Complications Complications None Follow Up Care/Instructions Patient Instructions None needed. Anesthesiology Discharge Order Discharge Order Patient is doing well, no complaints, stable vital signs, no apparent adverse anesthesia problems. No complications reported per nursing. BOB WALKER CRNA Dec 13, 2022 10:54
[2022-12-13 11:00] VITALS: BP 101/59
--- NOTE | 2022-12-13 11:00 | Progress Note-Post Operative ---
Post-Operative Progess Note Surgeon (s)/Supervisor Felling Bucking (s) Surgeon OLMAN RIOS DO Supervisor Felling Bucking: n/a Pre-Operative Diagnosis hx of polyps Post-Operative Diagnosis colon polyps Procedure & Operative Findings Date of Procedure 12/13/22 Procedure Performed/Findings colonoscopy w/ hot bx polypectomy x3 Anesthesia Type per ZUMBA INSTRUCTOR Estimated Blood Loss Estimated blood loss (mL): none Specimens/Packing Specimens Removed colon polyps OLMAN RIOS DO Dec 13, 2022 11:00
--- NOTE | 2022-12-13 11:01 | Discharge Inst-Simple/Standard ---
Discharge Inst-Standard Patient Instructions/Follow Up Plan of Care/Instructions/FU: 2 weeks Stephon - hold aspirin and plavix 5 days Activity as Tolerated: Yes Discharge Diet: Regular Diet OLMAN RIOS DO Dec 13, 2022 11:01
[2022-12-13 11:10] VITALS: BP 114/63
[2022-12-13 11:26] VITALS: BP 114/63
--- NOTE | 2022-12-13 17:52 | OPERATIVE REPORT ---
DATE OF SERVICE: 12/13/2022 PREOPERATIVE DIAGNOSIS: History of polyps. POSTOPERATIVE DIAGNOSIS: Colon polyps. PROCEDURE: Colonoscopy with hot biopsy polypectomy x3. SURGEON: Olman Szymanski DO ANESTHESIA: Per WIRE STRIPPER. ESTIMATED BLOOD LOSS: None. COMPLICATIONS: None. INDICATIONS: The patient is a 67-year-old male with history of polyps. He understands risks and benefits of procedure and wished to proceed. Consent was signed in chart. DESCRIPTION OF PROCEDURE: The patient was taken to endoscopy suite, placed in left lateral recumbent position. Timeout was performed. Digital rectal exam was performed. No palpable polyps, masses or ulcerations. Scope was inserted in the rectum, advanced all the way to the cecum with minimal difficulty. Prep was adequate. Two polyps in the cecum, which hot biopsy polypectomies were performed. Scope was then continuously retracted back. No polyps, masses or ulcerations within the ascending colon. In transverse colon, polyp was present, which hot biopsy polypectomy was performed. Scope was then continuously retracted back. No polyps, masses or ulcerations within the remainder of the transverse, descending, sigmoid, and rectum. Once in the rectum, the scope was retroflexed, noting no other pathology. Scope was returned to its normal position, slowly withdrawn until completely removed. The patient tolerated the procedure well without complications, taken to recovery room in stable condition. RECOMMENDATIONS: The patient will need repeat colonoscopy in 5 years, if benefits outweigh the risks. Any issues before that, he will be seen at that time. The patient will follow up in 2 weeks to discuss pathology results. Job ID: [id number] DocumentID: [id number] Dictated Date: 12/13/2022 11:00:20 Feeder Associate Date: 12/13/2022 17:50:00 Dictated By: OLMAN SZYMANSKI DO
== END 2022-12-13 11:39 | disposition home or self-care (01) ==
LOC: ENDO 09:15
PROVIDERS: ATTEND Surgery
DX: Z12.11 Encounter for screening for malignant neoplasm of colon (principal); D12.0 Benign neoplasm of cecum; D12.3 Benign neoplasm of transverse colon; E11.9 Type 2 diabetes mellitus without complications; Z95.5 Presence of coronary angioplasty implant and graft; Z79.84 Long term (current) use of oral hypoglycemic drugs